=== PATIENT | female | born 1995 | race Caucasian/White ===

== ENCOUNTER 2017-10-20 02:52 | Emergency (ER) | payer BC ==
[~2017-10-20] VITALS: Ht 167.6 cm; Wt 54.5 kg
[2017-10-20 02:56] VITALS: BP 119/80; PULSE 98; TEMP 98
== END 2017-10-20 04:20 | disposition left against medical advice (07) ==
LOC: COL.ER 02:52
DX: Z53.29 Procedure and treatment not carried out because of patient's decision for other reasons (principal)

== ENCOUNTER → 2017-10-20 | Outpatient (REF) ==
[~2017-10-20] MED LIST: ALDACTONE 25MG25 M1 PO; BACTRIM DS 8001 TAB PO; LEXAPRO 10MG10 MG PO; MACROBID 1100 MG/CAP; SPRINTEC 35 MCG1 TAB PO; ULTRAM 50MG TAB50 MG PO; ZOFRAN8 MG PO
== END ==
LOC: EDSTATUS 03:21 → COL.ER 03:21
DX: Z53.29 Procedure and treatment not carried out because of patient's decision for other reasons (principal)

== ENCOUNTER 2017-12-12 10:01 | Observation (INO) | payer BC ==
[~2017-12-12] VITALS: Ht 175.3 cm; Wt 54.5 kg
[2017-12-12] VITALS (17 sets, daily range): BP systolic 102; BP diastolic 73; PULSE 76–79; TEMP 97.4; O2SAT 60–86
[2017-12-12 10:36] LABS: ARTERIAL BLD GAS O2 SATURATION 95.8 % (92-100); ARTERIAL BLD GAS TCO2 CT 25.9; ARTERIAL BLOOD GAS HCO3 24.6 meq/L (22-26); ARTERIAL BLOOD GAS PCO2 40.1 mmHg (35-45); ARTERIAL BLOOD GAS PO2 81.5 mmHg (80-100); ARTERIAL BLOOD GAS pH 7.41 (7.35-7.45)
[2017-12-12 10:53] LABS: COLLECTION METHOD CATHETER
[2017-12-12 11:09] LABS: MUCOUS Present /lpf; PH 7 (5-8); SQUAMOUS EPITHELIAL 0-2 /hpf; URINE APPEARANCE Clear; URINE BACTERIA None Seen /hpf; URINE BILIRUBIN Negative (NEGATIVE); URINE BLOOD Negative (NEGATIVE); URINE COLOR Yellow; URINE GLUCOSE Negative (NEGATIVE); URINE KETONE Negative (NEGATIVE); URINE LEUKOCYTE ESTERASE Negative (NEGATIVE); URINE NITRATE Negative (NEGATIVE); URINE PROTEIN(semi-quant) Negative (NEGATIVE); URINE RBC 0-2 /hpf; URINE UROBILINOGEN Negative (NEGATIVE)
[2017-12-12 11:14] LABS: BASO # 0.1 (0.0-0.2); BASO % 0.7 % (0.0-2.0); EOS # 0.1 (0.0-0.7); EOS % 1.2 % (0-4.0); GRAN # 5.3 (1.4-6.5); GRAN % 77.1 % (42.2-75.2); HEMATOCRIT 38.7 % (37.0-47.0); HEMOGLOBIN 13.2 g/dl (12.5-16.0); LYMPH # 1.1 (1.2-3.4); LYMPH % 15.7 % (20.0-51.0); MEAN CELL VOLUME 92 fl (80.0-100.0); MEAN CORPUSCULAR HEMOGLOBIN 32 pg (27.0-31.0); MEAN CORPUSCULAR HGB CONC 34 g/dl (33.0-37.0); MEAN PLATELET VOLUME 9.5 fl (7.4-10.4); MONO # 0.3 (0.1-0.6); PLATELET COUNT 256 K/mm3 (130-400); RED BLOOD COUNT 4.19 M/mm3 (4.10-5.30); REDCELL DISTRIBUTION WIDTH-CV 12.3 % (11.5-14.5)
[2017-12-12 11:20] LABS: TRICYCLIC ANTIDEPRESS URINE NEGATIVE
[2017-12-12 11:26] LABS: ACETAMINOPHEN 18 ug/mL (10-30); ALANINE AMINOTRANSFERASE 24 U/L (9-52); ALBUMIN 3.8 gm/dL (3.5-5.0); ALKALINE PHOSPHATASE 49 U/L (50-136); ANION GAP 11 mmol/L (7-16); AST,SGOT 16 U/L (15-37); BILIRUBIN,TOTAL 0.4 mg/dL (0.0-1.0); BLOOD UREA NITROGEN 8 mg/dL (7-17); CALCIUM 8.4 mg/dL (8.4-10.2); CARBON DIOXIDE 24 mmol/L (22-30); CHLORIDE 105 mmol/L (98-107); CREATININE, serum 0.63 mg/dL (0.52-1.25); GLUCOSE 95 mg/dL (74-106); MAGNESIUM 1.9 mg/dL (1.6-2.3); POTASSIUM 4.4 mmol/L (3.4-5.0); SODIUM 141 mmol/L (137-145); TOTAL PROTEIN 6.5 gm/dL (6.4-8.2)
[2017-12-12 11:27] LABS: ALCOHOL(ethanol),MEDICAL < 10 mg/dL; SALICYLATE < 1.0 mg/dL
[2017-12-12] MEDS ORDERED: WELLBUTRIN XL300 M1 PO (13:57)
== END 2017-12-12 16:39 | disposition home or self-care (01) ==
LOC: COL.ER 10:01 → ICU 12:32
PROVIDERS: Emergency Medicine
DX: T43.292A Poisoning by other antidepressants, intentional self-harm, initial encounter (principal); T43.222A Poisoning by selective serotonin reuptake inhibitors, intentional self-harm, initial encounter; T39.312A Poisoning by propionic acid derivatives, intentional self-harm, initial encounter; T39.1X2A Poisoning by 4-Aminophenol derivatives, intentional self-harm, initial encounter; R45.851 Suicidal ideations; M54.9 Dorsalgia, unspecified; R11.10 Vomiting, unspecified; F32.9 Major depressive disorder, single episode, unspecified; R51 Headache; Z80.0 Family history of malignant neoplasm of digestive organs
CPT/HCPCS: G0378; J7030